=== PATIENT | male | born 1990 | race Caucasian/White ===

== ENCOUNTER 2016-06-20 18:40 | Emergency (ER) | payer OTHER ==
[~2016-06-20] VITALS: Ht 172.7 cm; Wt 82.0 kg
[2016-06-20 18:45] VITALS: BP 121/73; PULSE 67; TEMP 36.8; O2SAT 98; Ht 172.7 cm; Wt 82.0 kg
[2016-06-20] MEDS ORDERED: IBUPROFEN 600 MG TAB PO STA (19:02)
--- NOTE | 2016-06-20 19:36 | DIAGNOSTIC IMAGING REPORT ---
RIGHT ANKLE MIN 3 VIEWS ROUTINE CLINICAL HISTORY: Right ankle pain status post trauma COMPARISON: None. DISCUSSION: No fractures or dislocations are visualized. The ankle mortise appears intact on these nonstress views. IMPRESSION: No fractures or dislocations identified. Electronically signed by: Henri Leo M.D. 06/20/2016 7:34 PM Dictated Date/Time: 06/20/2016 7:33 PM
--- NOTE | 2016-06-20 19:49 | EMERGENCY ROOM VISIT NOTE ---
ED Visit Note First contact with patient: 18:46 CHIEF COMPLAINT: Right Ankle injury HISTORY OF PRESENT ILLNESS: This 26-year-old male patient sustained an injury to the right ankle and foot with a twisting, inversion motion 6 hours ago while he was playing football.. Complains of swelling and pain. The patient is able to bear weight on the foot but with pain. Constant pain, moderate to severe, worse with movement, weight bearing, and the dependent position. No knee pain. The patient states he was wearing an ankle brace on his right ankle when the injury occurred. He states he heard a "pop" at the time of injury. The patient admits to prior sprains of the ankle but no broken bones. The patient has never seen orthopedics in the past. REVIEW OF SYSTEMS: 6 system review was performed and was negative unless stated otherwise in history of present illness. PMH: No prior significant ankle injury. The patient is generally healthy with no chronic medical problems or a history of major surgery. SOCIAL HISTORY: Patient lives alone. The patient denies any tobacco use but admits to occasional alcohol use. PHYSICAL EXAM: Vital Signs: Were reviewed Reviewed Nurse's notes. GEN.: 26-year -old white male appears in no acute distress. MENTAL STATUS: Alert, oriented, and cooperative. RIGHT ANKLE: The ankle is swollen and tender over the lateral aspect but the skin is intact and there is no ligamentous instability. There is no deformity. The foot and toes are warm and well-perfused. Sensation to pain and light touch is intact. EMERGENCY DEPARTMENT COURSE: The patient was evaluated. Ice pack was applied. The patient was given ibuprofen 600 mg by mouth for pain. X-ray of the right ankle was ordered and interpreted by the radiologist and myself. DIAGNOSTICS:RIGHT ANKLE MIN 3 VIEWS ROUTINE CLINICAL HISTORY: Right ankle pain status post trauma COMPARISON: None. DISCUSSION: No fractures or dislocations are visualized. The ankle mortise appears intact on these nonstress views. IMPRESSION: No fractures or dislocations identified. Electronically signed by: Henri Leo M.D. 06/20/2016 7:34 PM The patient was informed of the findings. The patient has a splint with him to put on. He was given crutches. The patient was discharged home in stable condition. DIAGNOSIS: Sprained right Ankle DISCHARGE INSTRUCTIONS: Ice and elevation over the next 24 hours. Ibuprofen, 600 mg every 6 hours if needed for pain. Use crutches and wear gel splint until weightbearing is tolerable. If there is no improvement in 3-5 days followup with your doctor or an orthopedic surgeon . Problem List Medical Problems: (1) Vomiting Status: Resolved Current/Historical Medications No Active Prescriptions or Reported Meds Allergies Coded Allergies: No Known Allergies (Unverified , 09/17/15) Vital Signs Date Time Temp Pulse Resp B/P Pulse Ox O2 Delivery O2 Flow Rate FiO2 06/20/16 18:45 36.8 67 16 121/73 98 Room Air Medications Administered Medications (Trade) Dose Ordered Sig/Frank Route Start Time Stop Time Status Last Admin Dose Admin Ibuprofen (Motrin Tab) 600 mg NOW STAT PO 06/20/16 19:02 06/20/16 19:04 DC 06/20/16 19:02 600 MG Departure Information Prescriptions No Active Prescriptions or Reported Meds Referrals Thelma Black M.D. (PCP) Patient Instructions My [facility]
== END 2016-06-20 20:03 | disposition home or self-care (01) ==
LOC: C.EDB 18:42 → C.EDD 20:03
DX: S93.401A Sprain of unspecified ligament of right ankle, initial encounter (principal); X58.XXXA Exposure to other specified factors, initial encounter; Y93.61 Activity, american tackle football